=== PATIENT | male | born 1990 | race Caucasian/White ===

== ENCOUNTER 2019-02-04 13:23 | Emergency (ER) | payer OTHER, SELFPAY ==
[2019-02-04 13:35] VITALS: PULSE 69
[2019-02-04 13:38] VITALS: BP 151/98; PULSE 73; RESP 20; TEMP 36.3; O2SAT 99; BMI 33.0
--- NOTE | 2019-02-04 13:40 | DI.RAD.S_ITS ---
PROCEDURE: XR FOOT LT MIN 3V INDICATIONS: pain stepping of a curb left foot and ankle pain TECHNIQUE: 3 views of the foot were acquired. COMPARISON: [facility], CR, XR ANKLE LT MIN 3V, 02/04/2019, 13:41. FINDINGS: Bones: No fractures or dislocations. No suspicious bony lesions. Mild degenerative changes of the 1st metatarsophalangeal joint are present. There is a bipartite medial sesamoid of the great toe. Incidental note is made of os peroneum. Soft tissues: No tibiotalar joint effusion. Achilles tendon appears normal. IMPRESSION: No acute osseous abnormality of the left foot. Dictated by: Kadeem Donato M.D. on 02/04/2019 at 13:06 Approved by: Kadeem Donato M.D. on 02/04/2019 at 13:10
--- NOTE | 2019-02-04 13:40 | DI.RAD.S_ITS ---
PROCEDURE: XR ANKLE LT MIN 3V INDICATIONS: pain stepping off a curb left foot and ankle pain TECHNIQUE: 3 views of the ankle were acquired. COMPARISON: [facility], , XR FOOT LT MIN 3V, 02/04/2019, 13:41. FINDINGS: Bones: No fractures or dislocations. Ankle mortise is normally aligned. No suspicious bony lesions. Incidental note is made of os peroneum. Slight irregularity at the tip of the medial malleolus is suggestive of previous ligamentous injury. Soft tissues: No tibiotalar joint effusion. Achilles tendon appears normal in thickness. IMPRESSION: No acute osseous abnormality of the left ankle. Dictated by: Kadeem Donato M.D. on 02/04/2019 at 13:04 Approved by: Kadeem Donato M.D. on 02/04/2019 at 13:06
[2019-02-04] MEDS: KETOROLAC 60 MG/2 ML VIAL IM (13:57)
[2019-02-04] MEDS: TET,DIPH,PERTUSS(ACELL),VAC/PF 0.5 ML SYRINGE IM (13:58)
--- NOTE | 2019-02-04 15:46 | PC.NURSE ---
wound cleaned with sterile water by six horse hitch driver. followed by bandaid placed.
[2019-02-04 15:48] VITALS: BP 125/85; PULSE 62; RESP 18; O2SAT 99
--- NOTE | 2019-02-04 18:34 | ED.LOWEXIN ---
HPI - Extremity Injury (Lower) <ROLANDO Connors - Last Filed: 02/04/19 18:45> General Chief Complaint: Extremity Injury, Lower Stated Complaint: Stepped of cub twisted Lt ankle hurt Time Seen by Provider: 02/04/19 13:35 Source: patient Mode of arrival: ambulatory Limitations: no limitations History of Present Illness HPI Narrative: The patient is a 28-year-old male nonsmoker with who presents for chief complaint of left ankle pain. He states he stepped off a curb wrong, and twisted out. He states he was able to ambulate a little bit after, but weight-bearing cost pain. Denies any previous injury to his foot or ankle. He complains of pain at the ball of his left ankle, and up the inside and outside of his ankle. He states he can wiggle his toes. He has not applied ice or taken any medications. He does not know when his last tetanus was. He also complains of abrasions on his knees. Related Data Allergies Allergy/AdvReac Type Severity Reaction Status Date / Time No Known Drug Allergies Allergy Verified 02/04/19 13:56 Review of Systems <ROLANDO Connors - Last Filed: 02/04/19 18:45> Review of Systems GENERAL: Denies chills, fatigue, malaise, fever, sweats. HEENT: Denies sinus pain, ear pain, sore throat, difficulty swallowing, dizziness. RESPIRATORY: Denies dyspnea, cough, wheezing, hemoptysis, sputum. CARDIOVASCULAR: Denies chest pain, palpitations, orthopnea, edema, GASTROINTESTINAL: Denies nausea, vomiting, abdominal pain, diarrhea, constipation, melena. : Denies dysuria, frequency, incontinence, hematuria, urinary retention. MUSCULOSKELETAL: See HPI SKIN: See HPI NEUROLOGIC: Denies weakness, headache, numbness, change in speech, confusion, seizures, incoordination. PSYCHIATRIC: No concerning psychosocial issues. 12 point review of systems is negative except for those stated above PFSH <ROLANDO Connors - Last Filed: 02/04/19 18:45> Medical History Family history non-contributory (Acute) Medical history non-contributory (Acute) Social History Smoking Status: Never smoker Social History Smoking Status: Never smoker Exam <ROLANDO Connors - Last Filed: 02/04/19 18:45> Narrative Exam Narrative: GENERAL: This is a well-nourished, well-developed patient, in no acute distress HEAD: Atraumatic. Normocephalic. No temporal or scalp tenderness. EYES: Pupils equal round and reactive. Extraocular motions intact. No scleral icterus. No injection or drainage. ENT: Nose without bleeding, purulent drainage or septal hematoma. Throat without erythema, tonsillar hypertrophy or exudate. Uvula midline. Airway patent. NECK: Trachea midline. No JVD or lymphadenopathy. Supple, nontender, no meningeal signs. CARDIOVASCULAR: Regular rate and rhythm EXTREMITIES: Pain to palpation left ankle. Able to flex and extend left ankle. Pain to palpation at the base of the 5th toe on the left foot. Positive pedal pulses difficulty pronating and supinating left foot. BACK: Nontender without deformity or crepitance. No flank tenderness. NEURO: AOx3. SKIN: 2 x 3 cm abrasion noted right knee, 2 x 1 cm abrasion noted left knee Initial Vital Signs Initial Vital Signs: Vital Signs Pulse Rate 69 02/04/19 13:35 <Stephani Mejia DO - Last Filed: 02/05/19 17:57> Initial Vital Signs Initial Vital Signs: Vital Signs Pulse Rate 69 02/04/19 13:35 Procedures <ROLANDO Connors - Last Filed: 02/04/19 18:45> Orthopedic Splinting/Casting Injury #1: Side: left Lower Extremity Injury Location: ankle Lower Extremity Immobilizer: Juan Jose wrap Other Orthopedic Equipment: crutches Post splinting neuro exam: intact Post splinting vascular exam: intact Placed by: Nursing Course <ROLANDO Connors - Last Filed: 02/04/19 18:45> Orders Ordered: Discontinued Medications Diphtheria/Tetanus/Acell Pertussis (Adacel) 0.5 ml IM .ONCE ONE Stop: 02/04/19 13:41 Last Admin: 02/04/19 13:58 Dose: 0.5 ml Ketorolac Tromethamine (Toradol) 60 mg IM NOW ONE Stop: 02/04/19 13:41 Last Admin: 02/04/19 13:57 Dose: 60 mg Vital Signs - 8 hr 02/04/19 13:35 02/04/19 13:38 02/04/19 15:48 Temperature 97.4 F L Pulse Rate 73 62 Pulse Rate [Left Dorsalis Pedis] 69 Respiratory Rate 20 18 Blood Pressure 151/98 H 125/85 Pulse Oximetry 99 99 <Stephani Mejia DO - Last Filed: 02/05/19 17:57> Orders Ordered: Discontinued Medications Diphtheria/Tetanus/Acell Pertussis (Adacel) 0.5 ml IM .ONCE ONE Stop: 02/04/19 13:41 Last Admin: 02/04/19 13:58 Dose: 0.5 ml Ketorolac Tromethamine (Toradol) 60 mg IM NOW ONE Stop: 02/04/19 13:41 Last Admin: 02/04/19 13:57 Dose: 60 mg Vital Signs - 8 hr 02/04/19 13:35 02/04/19 13:38 02/04/19 15:48 Temperature 97.4 F L Pulse Rate 73 62 Pulse Rate [Left Dorsalis Pedis] 69 Respiratory Rate 20 18 Blood Pressure 151/98 H 125/85 Pulse Oximetry 99 99 MDM - Extremity Injury (Lower) <ROLANDO Connors - Last Filed: 02/04/19 18:45> Imaging Data Ankle x-ray: Radiologist's impression: [address] [address] XRay Report Signed Patient: Agus Logan HMR#: [id number] : 1990Acct:[id number] Age/Sex: 28 MDate of Service: 02/04/19 Loc: ED Accession Number: [id number] Procedure: XR ankle LT min 3V Ordering Provider: Stephani Corea PROCEDURE: XR ANKLE LT MIN 3V INDICATIONS: pain stepping off a curb left foot and ankle pain TECHNIQUE: 3 views of the ankle were acquired. COMPARISON: [facility], [place], SREE FOOT LT MIN 3V, 02/04/2019, 13:41. FINDINGS: Bones: No fractures or dislocations. Ankle mortise is normally aligned. No suspicious bony lesions. Incidental note is made of os peroneum. Slight irregularity at the tip of the medial malleolus is suggestive of previous ligamentous injury. Soft tissues: No tibiotalar joint effusion. Achilles tendon appears normal in thickness. IMPRESSION: No acute osseous abnormality of the left ankle. Dictated by: Kadeem Donato M.D. on 02/04/2019 at 13:04 Approved by: Kadeem Donato M.D. on 02/04/2019 at 13:06 Foot x-ray: Radiologist's impression: [address] [address] XRay Report Signed Patient: Agus Logan HMR#: [id number] : 1990Acct:[id number] Age/Sex: 28 / MDate of Service: 02/04/19 Loc: ED Accession Number: [id number] Procedure: XR foot LT min 3V Ordering Provider: Stephani Corea- PROCEDURE: XR FOOT LT MIN 3V INDICATIONS: pain stepping of a curb left foot and ankle pain TECHNIQUE: 3 views of the foot were acquired. COMPARISON: [facility], CR, XR ANKLE LT MIN 3V, 02/04/2019, 13:41. FINDINGS: Bones: No fractures or dislocations. No suspicious bony lesions. Mild degenerative changes of the 1st metatarsophalangeal joint are present. There is a bipartite medial sesamoid of the great toe. Incidental note is made of os peroneum. Soft tissues: No tibiotalar joint effusion. Achilles tendon appears normal. IMPRESSION: No acute osseous abnormality of the left foot. Dictated by: Kadeem Donato M.D. on 02/04/2019 at 13:06 Approved by: Kadeem Donato M.D. on 02/04/2019 at 13:10 MDM Narrative Medical decision making narrative: The patient is a 28-year-old male who presents with a chief complaint of ankle pain. He has negative x-rays. He is neurovascularly intact. He was placed in an Juan Jose wrap and given crutches by nursing. I discussed at length follow up with his PCP for new or worsening symptoms. Encouraged rest ice compression elevation as well as over the counter pain medication as needed and able. Discussed coming back to the ER for any acute concerns. Patient has no questions or concerns upon discharge Discharge Plan Departure Patient Disposition: Home Clinical Impression: Fall from ground level, Abrasion Acute ankle pain Qualifiers: Laterality: left Qualified Code(s): M25.572 - Pain in left ankle and joints of left foot Discharge Date/Time: 02/04/19 15:48 Interventions: ED Discharge Assessment Last Done: 02/04/19 15:48 Instructions: How to Use Crutches, How To Perform RICE (Rest, Ice, Compress, Elevate), DI for Abrasion, DI for Ankle Pain Activity Restrictions/Additional Instructions: Your x-rays today show no acute etiology. Please use [id number] medications as needed and able. Please use rest ice compression elevation. Please follow up with primary care provider for worsening or no improvement as you may have a soft tissue injury. <Stephani Mejia DO - Last Filed: 02/05/19 17:57> Cosign ED Attending Cosignature Attestation: I was immediately available in the department for consultation. This documentation has been reviewed and I agree with assessment and plan. Supervised by Stephani Mejia DO
--- NOTE | 2019-02-04 18:37 | ED_ITS ---
HPI - Extremity Injury (Lower) <ROLANDO Connors - Last Filed: 02/04/19 18:45> General Chief Complaint: Extremity Injury, Lower Stated Complaint: Stepped of cub twisted Lt ankle hurt Time Seen by Provider: 02/04/19 13:35 Source: patient Mode of arrival: ambulatory Limitations: no limitations History of Present Illness HPI Narrative: The patient is a 28-year-old male nonsmoker with who presents for chief complaint of left ankle pain. He states he stepped off a curb wrong, and twisted out. He states he was able to ambulate a little bit after, but weight- bearing cost pain. Denies any previous injury to his foot or ankle. He complains of pain at the ball of his left ankle, and up the inside and outside of his ankle. He states he can wiggle his toes. He has not applied ice or taken any medications. He does not know when his last tetanus was. He also complains of abrasions on his knees. Related Data Allergies Allergy/AdvReac Type Severity Reaction Status Date / Time No Known Drug Allergies Allergy Verified 02/04/19 13:56 Review of Systems <ROLANDO Connors - Last Filed: 02/04/19 18:45> Review of Systems GENERAL: Denies chills, fatigue, malaise, fever, sweats. HEENT: Denies sinus pain, ear pain, sore throat, difficulty swallowing, dizziness. RESPIRATORY: Denies dyspnea, cough, wheezing, hemoptysis, sputum. CARDIOVASCULAR: Denies chest pain, palpitations, orthopnea, edema, GASTROINTESTINAL: Denies nausea, vomiting, abdominal pain, diarrhea, constipation, melena. : Denies dysuria, frequency, incontinence, hematuria, urinary retention. MUSCULOSKELETAL: See HPI SKIN: See HPI NEUROLOGIC: Denies weakness, headache, numbness, change in speech, confusion, seizures, incoordination. PSYCHIATRIC: No concerning psychosocial issues. 12 point review of systems is negative except for those stated above PFSH <ROLANDO Connors - Last Filed: 02/04/19 18:45> Medical History Family history non-contributory (Acute) Medical history non-contributory (Acute) Social History Smoking Status: Never smoker Social History Smoking Status: Never smoker Exam <ROLANDO Connors - Last Filed: 02/04/19 18:45> Narrative Exam Narrative: GENERAL: This is a well-nourished, well-developed patient, in no acute distress HEAD: Atraumatic. Normocephalic. No temporal or scalp tenderness. EYES: Pupils equal round and reactive. Extraocular motions intact. No scleral icterus. No injection or drainage. ENT: Nose without bleeding, purulent drainage or septal hematoma. Throat without erythema, tonsillar hypertrophy or exudate. Uvula midline. Airway patent. NECK: Trachea midline. No JVD or lymphadenopathy. Supple, nontender, no meningeal signs. CARDIOVASCULAR: Regular rate and rhythm EXTREMITIES: Pain to palpation left ankle. Able to flex and extend left ankle. Pain to palpation at the base of the 5th toe on the left foot. Positive pedal pulses difficulty pronating and supinating left foot. BACK: Nontender without deformity or crepitance. No flank tenderness. NEURO: AOx3. SKIN: 2 x 3 cm abrasion noted right knee, 2 x 1 cm abrasion noted left knee Initial Vital Signs Initial Vital Signs: Vital Signs Pulse Rate 69 02/04/19 13:35 <Stephani Mejia DO - Last Filed: 02/05/19 17:57> Initial Vital Signs Initial Vital Signs: Vital Signs Pulse Rate 69 02/04/19 13:35 Procedures <ROLANDO Connors - Last Filed: 02/04/19 18:45> Orthopedic Splinting/Casting Injury #1: Side: left Lower Extremity Injury Location: ankle Lower Extremity Immobilizer: Juan Jose wrap Other Orthopedic Equipment: crutches Post splinting neuro exam: intact Post splinting vascular exam: intact Placed by: Nursing Course <ROLANDO Connors - Last Filed: 02/04/19 18:45> Orders Ordered: Discontinued Medications Diphtheria/Tetanus/Acell Pertussis (Adacel) 0.5 ml IM .ONCE ONE Stop: 02/04/19 13:41 Last Admin: 02/04/19 13:58 Dose: 0.5 ml Ketorolac Tromethamine (Toradol) 60 mg IM NOW ONE Stop: 02/04/19 13:41 Last Admin: 02/04/19 13:57 Dose: 60 mg Vital Signs - 8 hr 02/04/19 13:35 02/04/19 13:38 02/04/19 15:48 Temperature 97.4 F L Pulse Rate 73 62 Pulse Rate [Left Dorsalis Pedis] 69 Respiratory Rate 20 18 Blood Pressure 151/98 H 125/85 Pulse Oximetry 99 99 <Stephani Mejia DO - Last Filed: 02/05/19 17:57> Orders Ordered: Discontinued Medications Diphtheria/Tetanus/Acell Pertussis (Adacel) 0.5 ml IM .ONCE ONE Stop: 02/04/19 13:41 Last Admin: 02/04/19 13:58 Dose: 0.5 ml Ketorolac Tromethamine (Toradol) 60 mg IM NOW ONE Stop: 02/04/19 13:41 Last Admin: 02/04/19 13:57 Dose: 60 mg Vital Signs - 8 hr 02/04/19 13:35 02/04/19 13:38 02/04/19 15:48 Temperature 97.4 F L Pulse Rate 73 62 Pulse Rate [Left Dorsalis Pedis] 69 Respiratory Rate 20 18 Blood Pressure 151/98 H 125/85 Pulse Oximetry 99 99 MDM - Extremity Injury (Lower) <ROLANDO Connors - Last Filed: 02/04/19 18:45> Imaging Data Ankle x-ray: Radiologist's impression: [address] [address] XRay Report Signed Patient: Agus Logan HMR#: [id number] : 1990Acct:[id number] Age/Sex: 28 MDate of Service: 02/04/19 Loc: ED Accession Number: [id number] Procedure: XR ankle LT min 3V Ordering Provider: Stephani Corea PROCEDURE: XR ANKLE LT MIN 3V INDICATIONS: pain stepping off a curb left foot and ankle pain TECHNIQUE: 3 views of the ankle were acquired. COMPARISON: [facility], [place], SREE FOOT LT MIN 3V, 02/04/2019, 13:41. FINDINGS: Bones: No fractures or dislocations. Ankle mortise is normally aligned. No suspicious bony lesions. Incidental note is made of os peroneum. Slight irregularity at the tip of the medial malleolus is suggestive of previous ligamentous injury. Soft tissues: No tibiotalar joint effusion. Achilles tendon appears normal in thickness. IMPRESSION: No acute osseous abnormality of the left ankle. Dictated by: Kadeem Donato M.D. on 02/04/2019 at 13:04 Approved by: Kadeem Donato M.D. on 02/04/2019 at 13:06 Foot x-ray: Radiologist's impression: [address] [address] XRay Report Signed Patient: Agus Logan HMR#: [id number] : 1990Acct:[id number] Age/Sex: 28 / MDate of Service: 02/04/19 Loc: ED Accession Number: [id number] Procedure: XR foot LT min 3V Ordering Provider: Stephani Corea- PROCEDURE: XR FOOT LT MIN 3V INDICATIONS: pain stepping of a curb left foot and ankle pain TECHNIQUE: 3 views of the foot were acquired. COMPARISON: [facility], [place], XR ANKLE LT MIN 3V, 02/04/2019, 13:41. FINDINGS: Bones: No fractures or dislocations. No suspicious bony lesions. Mild degenerative changes of the 1st metatarsophalangeal joint are present. There is a bipartite medial sesamoid of the great toe. Incidental note is made of os peroneum. Soft tissues: No tibiotalar joint effusion. Achilles tendon appears normal. IMPRESSION: No acute osseous abnormality of the left foot. Dictated by: Kadeem Donato M.D. on 02/04/2019 at 13:06 Approved by: Kadeem Donato M.D. on 02/04/2019 at 13:10 MDM Narrative Medical decision making narrative: The patient is a 28-year-old male who presents with a chief complaint of ankle pain. He has negative x-rays. He is neurovascularly intact. He was placed in an Juan Jose wrap and given crutches by nursing. I discussed at length follow up with his PCP for new or worsening symptoms. Encouraged rest ice compression elevation as well as over the counter pain medication as needed and able. Discussed coming back to the ER for any acute concerns. Patient has no questions or concerns upon discharge Discharge Plan Departure Patient Disposition: Home Clinical Impression: Fall from ground level, Abrasion Acute ankle pain Qualifiers: Laterality: left Qualified Code(s): M25.572 - Pain in left ankle and joints of left foot Discharge Date/Time: 02/04/19 15:48 Interventions: ED Discharge Assessment Last Done: 02/04/19 15:48 Instructions: How to Use Crutches, How To Perform RICE (Rest, Ice, Compress, Elevate), DI for Abrasion, DI for Ankle Pain Activity Restrictions/Additional Instructions: Your x-rays today show no acute etiology. Please use [id number] medications as needed and able. Please use rest ice compression elevation. Please follow up with primary care provider for worsening or no improvement as you may have a soft tissue injury. <Stephani Mejia DO - Last Filed: 02/05/19 17:57> Cosign ED Attending Cosignature Attestation: I was immediately available in the department for consultation. This documentation has been reviewed and I agree with assessment and plan. Supervised by Stephani Mejia DO
== END 2019-02-04 15:48 | disposition home or self-care (01) ==
PROVIDERS: Emergency Provider Nurse Practitioner Family
DX: M25.572 Pain in left ankle and joints of left foot (principal); S80.212A Abrasion, left knee, initial encounter; S80.211A Abrasion, right knee, initial encounter; W10.1XXA Fall (on)(from) sidewalk curb, initial encounter
CPT/HCPCS: 73610; 73630; 90471; 96372; 99282; 99283; 90715; J1885